=== PATIENT | female | born 1990 | race Caucasian/White ===

== ENCOUNTER 2024-01-30 14:30 | Emergency (ER) | payer OTHER, SELFPAY ==
[2024-01-30 14:41] VITALS: BP 157/83; PULSE 92; RESP 20; TEMP 36.3; O2SAT 100
--- NOTE | 2024-01-30 14:53 | ED.URI ---
HPI - URI/Sore Throat General Chief Complaint: Upper Respiratory Infection Stated Complaint: Sore Throat/Cough Time Seen by Provider: 01/30/24 14:53 Source: patient, RN notes reviewed and old records reviewed Mode of arrival: ambulatory Limitations: no limitations History of Present Illness HPI Narrative: 33-year-old female to [facility] for complaint of sore throat past 5-6 days. Patient states that she was placed on Keflex by her PCP on January 26. Patient states that she has also taken Mucinex, Claritin, Tylenol, and ibuprofen at home with little relief. Patient reports left ear pain for 2 days. Patient denies pertinent medical history, shortness of breath, cough, fever, chest pain, shortness of breath, difficulty swallowing. Patient able to tolerate fluids by mouth. Respirations even and unlabored. Patient in no acute distress. Related Data Allergies Allergy/AdvReac Type Severity Reaction Status Date / Time amoxicillin Allergy Unknown Verified 01/31/24 10:00 Penicillins Allergy Unknown Verified 01/31/24 10:00 Review of Systems Review of Systems: All systems reviewed & are unremarkable except as noted in HPI and below Constitutional: Constitutional: Reports as per HPI, Denies fatigue and Denies fever(s) Eyes: Eyes: Reports no additional eye complaints ENT: Reports as per HPI, Reports otalgia ( left) and Reports sore throat Cardiovascular: Cardiovascular: Reports no additional cardiovascular complaints, Denies chest pain and Denies dyspnea Respiratory: Respiratory: Reports no additional respiratory complaints, Denies cough and Denies dyspnea Musculoskeletal: Musculoskeletal: Reports no additional musculoskeletal complaints Neurologic: Reports system reviewed and no additional complaints, except as documented Psychiatric: Psychiatric: Reports no additional psychiatric complaints PMFSH Comments At the time of my signature, I reviewed and agree with the nursing past medical, surgical, social, and family history. There is no relevant family history pertinent to the patient complaint. Exam Const: General: cooperative, healthy appearing, comfortable, no acute distress, alert and well nourished Nutritional Appearance: well nourished Orientation/consciousness: patient oriented x3 Limitations: no limitations HENMT: Head: normal to inspection Ears: external ears normal Face/Nose/Sinus: Normal external nose present, Normal nares present, normal facial exam, No erythema and No edema Face and sinus: normal facial exam, no erythema and no edema Mouth: Yes Normal oral and palatal mucosa present Throat: posterior oropharynx abnormal erythema Eyes: General: appearance normal, both eyes and all related structures Neck: Neck: normal visual inspection, full ROM and no meningeal signs Lymphatic: no lymphadenopathy noted and no lymphedema noted Chest: Chest palpation & inspection: normal inspection of the chest Resp: Effort & Inspection: normal respiratory effort and able to speak in complete sentences Auscultation: clear to auscultation bilaterally Cardio: Jugular venous distension: no JVD Rate: regular rate Rhythm: regular rhythm Back/Spine/Pelvis: Cervical Spine: cervical ROM normal Skin: General skin exam: normal color, no rashes or lesions noted and turgor normal Neuro: General: patient oriented x3, gait normal, moves all extremities and no meningeal signs Speech: normal speech Gait exam (Neuro): Normal gait present Extrem: General: normal to inspection, full ROM and capillary refill normal Psych: Appearance: grossly normal and well kempt Course Course Emergency Course: Some parts of this dictation were generated by voice recognition software and may contain typographical and/or grammatical inaccuracies. Level of Care: Express Care Visit Vital Signs Vital signs: Vital Signs Temperature 36.3 C L 01/30/24 14:41 Pulse Rate 92 01/30/24 14:41 Respiratory Rate 20 01/30/24 14:41 Blood Pres
[2024-01-30 15:22] LABS: EDSTREPNEGPOS1 Presumptive Negative
== END 2024-01-30 15:26 | disposition home or self-care (01) ==
PROVIDERS: Emergency Provider Nurse Practitioner Family; PCP Nurse Practitioner
DX: J02.9 Acute pharyngitis, unspecified (principal)
CPT/HCPCS: 87081; 87880; 99203; G0463

== ENCOUNTER 2025-05-12 09:45 | Outpatient (CLI) | payer OTHER, SELFPAY ==
[2025-05-12 10:50] LABS: Hematocrit 42.6 % (37.0-47.0); Hemoglobin 13.9 g/dL (12.0-15.0); Mean Corpuscular HGB Conc 32.6 g/dl (32-36); Mean Corpuscular Hemoglobin 28.8 pg (26-34); Mean Corpuscular Volume 88.4 fl (80-100); Platelet Count Result 298 k/mm3 (150-375); Red Blood Count 4.82 M/mm3 (4.2-5.4); White Blood Count 7.6 K/mm3 (4.5-10.0)
[2025-05-12 11:11] LABS: Albumin Level 4.4 g/dL (3.5-5.1); Anion Gap 10 mmol/L (4-12); Blood Urea Nitrogen 11 mg/dL (7-17); Calcium 8.9 mg/dL (8.4-10.2); Carbon Dioxide 24 mmol/L (22-30); Chloride 102 mmol/L (98-107); Estimated Glomerular Filt Rate > 60; Glucose 97 mg/dL (65-110); Potassium 3.8 mmol/L (3.4-5.0); Sodium 136 mmol/L (137-145)
[2025-05-12 11:12] LABS: Iron 86 ug/dL (37-170)
[2025-05-12 11:18] LABS: Prealbumin 19.8 mg/dL (17.6-36.0)
[2025-05-15 19:08] LABS: Vit. B1, Whole Blood 102.4 nmol/L (66.5-200.0)
== END 2025-05-12 09:46 | disposition home or self-care (01) ==
LOC: ANHLAB 09:47
PROVIDERS: PCP Nurse Practitioner; Visit Provider Surgery Plastic and Reconstructive Surgery
DX: R63.4 Abnormal weight loss (principal)
CPT/HCPCS: 36415; 80048; 82040; 83540; 84134; 84425; 85027

== ENCOUNTER 2025-05-27 05:49 | Day surgery (SDC) | payer OTHER, SELFPAY ==
[2025-05-14 11:04] VITALS: BMI 36.2
[2025-05-27] VITALS (9 sets, daily range): BP systolic 120–147; BP diastolic 75–103; PULSE 93–107; RESP 14–24; TEMP 36.4–36.6; O2SAT 97–100; BMI 37.0
--- OUTSIDE RECORDS SUMMARY | 2025-05-27 05:57 | XMS_ITS | Clinical Summary ---
Author Organization [facility] Address [facility] [place] [address] Care Team Providers Care Anti Air Warfare Operations Officer Name Role Phone None, Provider MD Primary Care Provider Unavaila ble Allergies Active Allergy Reactions Criticality Noted Date Comments Penicillins Hives 10/01/2018 Medications vitamin, low iron, 27-0.8 MG tablet Take 1 tablet by mouth daily. Active oxyCODONE-acetam inophen (PERCOCET) 5-325 MG tablet Take 1 tablet by mouth every 4 (four) hours as needed for Pain. 40 tablet 10/15/2018 Active Active Problems Problem Noted Date Diagnosed Date Non-reactive NST (non-stress test) 10/14/2018 Family History Medical History Relation Comments high cholesterol Father Diabetes Mother Hypertension Mother Liver Disease Mother Hypertension Sister Relation Status Comments Brother Alive Father Alive Mother Alive Sister Alive Social History Tobacco Use Types Packs/Day Years Used Date Smoking Tobacco: Never Smokeless Tobacco: Never Alcohol Use Standard Drinks/Week Comments No 0 (1 standard drink = 0.6 oz pur e alcohol) AUDIT-C Answer Date Recorded Frequency of Alcohol Consumption Never 10/06/2018 Average Number of Drinks Not on file 019 Frequency of Binge Drinking Not on file 09/22 Comments No Sex and Gender Information Value Date Recorded Sex Assigned at Not on file Legal Sex Female 7:28 PM CDT Gender Identity Not on file Sexual Orientation Not on file Last Filed Vital Signs Vital Sign Reading Time Taken Comments Blood Pressure 115/75 01/03/2019 9:30 AM CDT Pulse 129 01/03/2019 5:18 AM CDT Temperature 37.7 C (99.8 F) 01/03/2019 8:00 AM CDT Respiratory Rate 19 01/03/2019 5:18 AM CDT Oxygen Saturation 97% 01/03/2019 9:30 AM CDT Inhaled Oxygen Concentration - - Weight 99.8 kg (220 lb) 01/03/2019 5:18 AM CDT Height 175.3 cm (5' 9) 01/03/2019 5:18 AM CDT Body Mass Index 32.49 01/03/2019 5:18 AM CDT Plan of Treatment Health Maintenance Due Date Last Done Comments Cervical Cancer Screening Pa p Smear (Age 30 to 64) Every 3 Years 1992 Annual Physical 09/12/1995 Hepatitis C 2010 DTaP, Tdap and Td Vaccines ( 1 - Tdap) 09/12/2011 Hepatitis B Vaccines (1 of 3 - 19+ 3-dose series) 09/12/2011 HPV Vaccines (1 - 3-dose SCD M series) 09/12/2019 Cervical Cancer Screening Pa p with HPV Testing (Age 30 to 64) Every 5 Years 2022 Cervical Cancer Screening with HPV 2022 COVID-19 Vaccine (2024-2 6 season) 2025 Influenza Adult (#1) 2025 Hepatitis A Vaccines Aged Out No long er eligible based on patient's age to complete this topic Meningococcal B Vaccine Aged Out No l onger eligible based on patient's age to complete this topic Meningococcal Vaccine Aged Out No mouna nel eligible based on patient's age to complete this topic Pneumococcal Vaccine: Pediat rics (0 to 5 Years) and At-Risk Patients (6 to 49 Years) Aged Out No longer eligible b ased on patient's age to complete this topic RSV Immunizations Under 20 Months Aged Out No longer eligible based on patient's age to complete this topic Advance Directives * Full Code (Latest Code Status on File) Date Activated Date Inactivated Comments 10/14/2018 7:50 PM 10/15/2018 12:05 PM Care Teams Anti Air Warfare Operations Officer Relationship Specialty Start Date End Date None, Provider, PCP - General 10/06/18
--- OUTSIDE RECORDS SUMMARY | 2025-05-27 05:57 | XMS_ITS | Clinical Summary ---
Author Organization [facility] Address [address] [place] [address] Care Team Providers Care Medical Administrative Specialist Name Role Phone Benjie Rogers MD Primary Care Provider [phone] Isabel Logan APRN-CNM Unavailable + Source Comments [facility],non-owned Affiliates and Associated Physician Practices is amultiple site organization consisting of ambulatory clinics and hospital sitesin [place], [place], [place] and [place]. This disclosure is being madepursuant to the Care Everywhere program and may not contain all information available regarding this patient. Last updated 18.[facility] Allergies Active Allergy Reactions Criticality Noted Date Comments Penicillins Urticaria Medium 10/04/2019 Penicillins Rash Medium 09/02/2016 Medications * Be aware that medications may not be up to date on this document. Alwaysverify current medications with the patient. 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 Has been on Zoloft, Wellbutrin; on Prozac 25 mg daily before this . Some panic attacks. Anxieties about her children, new places. Plans to resume meds post delivery. Insulin controlled gestation al diabetes mellitus (GDM) during 06/18/2021 10/25/19 22 Overview (07/31/2021): Getting twice weekly BPP/NST Growth US 33w 2117g overall 28%, AC 26%, normal CARMEN, cephalic 37w pending Obesity affecting 06/09/2021 10/24/2021 Overview (07/07/2021): BMI 36.8 pre-. Heavier this than for previous ones; gained in between pregnancies. Fall 05/30/2021 07/07/2021 History of gestational diabe champ mellitus (GDM) 05/14/2021 07/31/2021 Overview (05/14/2021): 1st trim A1c 5.3 Nausea/vomiting in 03/07/2021 07/07/2021 Overview (07/07/2021): Resolved by 28 weeks Heartburn during , antepartum 03/07/2021 10/24/2021 Supervision of high risk pre gnancy, antepartum 02/10/2021 10/24/2021 Previous delivery, antepartum 08/02/2016 10/24/2021 Overview (07/25/2021): Plan repeat CS scheduled for 0730 on Sat08/15/21 with MarianelaSourav Randall First CS for breech, oligohydramnios 2017 Second at 36 weeks, emergent for NRFHT ( tachycardia and lack of variability on NST and symptoms of decreased movement - per records, and variable decels, BPP 2/10 per patient) after steroids & elev glucose (gdm - metformin) & baby in NICU after delivery x 14 days Immunizations Immunization Administration Dates Next Due [employer] primary monoval ent 12+ yr 0.3mL Purple cap 07/04/2020,06/14/2020 FLU VACCINE QUAD IIV4 SPLIT 0.25 ML IM 6 INFLUENZA VACCINE, QUADR. (A FLURIA, FLUZONE QUADRIVALENT; 6MO+) (IIV4) 04/29/2020 INFLUENZA VACCINE, QUADR. (F LUZONE; FLULAVAL; FLUARIX; AFLURIA QUADRIVALENT; 6MO+), 0.5 ML (IIV4) 04/13/2021 MMR 08/16/2021() TDAP (7yrs+) 08/16/2021(),07/18/2021,04/30/20 16 Family History Medical History Relation Name Comments Celiac Disease Brother High Cholesterol Father Cancer - Breast Maternal Grandmother Celiac Disease Mother Diabetes - Type 2 Mother Hypertension Mother Other - Gastrointestinal Mother Shandra sung Biliary Cholangitis Cancer - Lung Paternal Grandfather Celiac Disease Sister Hypertension Sister Other - Gastrointestinal Sister HOWIE H Relation Name Status Comments Brother Alive Father Alive Maternal Grandmother Mother Alive Paternal Grandfather Sister Alive Social History Tobacco Use Types Packs/Day Years Used Date Smoking Tobacco: Never Smokeless Tobacco: Never Tobacco Cessation:Counseling Given: Not Answered Alcohol Use Standard Drinks/Week Comments Not Currently 0 (1 standard drink = 0.6 oz pur e alcohol) once a week a glass of wine AUDIT-C Answer Date Recorded Frequency of Alcohol Consumption Never 06/06/2020 Average Number of Drinks Not on file 020 Frequency of Binge Drinking Not on file 05/24 PHQ-2 Answer Date Recorded PHQ2 TOTAL SCORE 0 08/22/2021 [place] Depression Scale Answer Date Recorded [place] Depression Scale Total 5 08/18/2021 Last EPDS Self Harm Result Not on file 08/18 Comments No Sex and Gender Information Value Date Recorded Sex Assigned at Not on file Legal Sex Female 9:56 AM CDT Gender Identity Not on file Sexual Orientation Not on file Occupation 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 Not on file Not on file Not on file Last Filed Vital Signs Vital Sign Reading Time Taken Comments Blood Pressure 140/90 08/14/2022 9:51 AM DIRECTOR ADVERTISING Pulse 90 07/12/2022 3:46 PM DIRECTOR ADVERTISING Temperature 36.8 C (98.2 F) 07/12/2022 2:30 PM DIRECTOR ADVERTISING Respiratory Rate 16 07/12/2022 3:46 PM DIRECTOR ADVERTISING Oxygen Saturation 97% 07/12/2022 3:46 PM DIRECTOR ADVERTISING Inhaled Oxygen Concentration - - Weight 121.1 kg (267 lb) 08/14/2022 9:51 AM DIRECTOR ADVERTISING Height 175.3 cm (5' 9) 08/14/2022 9:51 AM DIRECTOR ADVERTISING Body Mass Index 39.43 08/14/2022 9:51 AM DIRECTOR ADVERTISING Plan of Treatment Health Maintenance Due Date Last Done Comments HEPATITIS B VACCINE (1 of 3 - 19+ 3-dose series) 09/12/2011 HPV VACCINE (1 - 3-dose SCDM series) 09/12/2019 DEPRESSION SCREENING 06/24/2024 05/16/2022, 05/10/2022, 01/26/2022, Additional history exists COVID-19 VACCINE ( - 2024- season) 2025 07/04/2020, 06/14/2020 INFLUENZA VACCINE (#1) 2025 , 04/13/2021, 04/29/2020, Additional history exists DTAP/TDAP/TD VACCINES (3 - Td or Tdap) 07/18/2031 07/18/2021, 04/30/2016 ZOSTER VACCINE (1 of 2) 2042 HEPATITIS C SCREENING Completed 02/10/2021, 018 HIV SCREENING Completed 07/18/2021, 01/23, 02/22/2018 HIB VACCINE Aged Out No longer eligi ble based on patient's age to complete this topic MENINGOCOCCAL (Group B) VACCINE SHARED DECISION-MAKING Aged Out No longer eligible based on patient's age to complete this topic MENINGOCOCCAL GROUPS A/C/Y/W VACCINE Aged Out No longer eligible based on patient's age to complete this topic PNEUMOCOCCAL VACCINE Aged Out No long er eligible based on patient's age to complete this topic Procedures Procedure Name Priority Date/Time Associated Diagnosis Comments HIV-1 HIV-2 ANTIBODY + HIV P24 AG PANEL Routine 07/18/2021 Supervision of high risk in third trimester HEPATITIS C AB W/RFLX TO HCV RNA QN PCR Routine 02/10/2021 Supervision of other normal , antepartum from Last 3 Months or Most Recently Relevant to Health Maintenance Results * HIV-1 HIV-2 ANTIBODY + HIV P24 AG PANEL (07/18/2021) HIV Screen 4th Generation w Reflex NON-REACT SIL NON-REACT SIL [facility] Comment: HIV-1 antigen and HIV-1/HIV-2 antibodies were not detected. There is no laboratory evidence of HIV infection. PLEASE NOTE: This information has been disclosed to you from records whose confidentiality may be protected by state law. If your state requires such protection, then the state law prohibits you from making any further disclosure of the information without the specific written consent of the person to whom it pertains, or as otherwise permitted by law. A general authorization for the release of medical or other information is NOT sufficient for this purpose. For additional information please refer to http://education.[employer]/faq/FJI266 (This link is being provided for informational/ educational purposes only.) The performance of this assay has not been clinically validated in patients less than 2 years old. Test Performed at: [facility] [address] [place] [address] NICKY ERICKSON DO,MPH Blood BLOOD SPECIMEN / Unknown 07/18/2021 07/18/2021 10:58 AM DIRECTOR ADVERTISING Rosemarie Randall MD LAB - CHEMISTRY ORDERABLES Final Result [facility] [address] [place] [address] * HEPATITIS C AB W/RFLX TO HCV RNA QN PCR (02/10/2021) Hepatitis C Antibody NON-REACTI VE NON-REACT SIL [facility] Signal to Cut-Off 0.01 <1.00 [facility] Comment: HCV antibody was non-reactive. There is no laboratory evidence of HCV infection. In most cases, no further action is required. However, if recent HCV exposure is suspected, a test for HCV RNA (test code 39503) is suggested. For additional information please refer to http://education.[employer]/faq/RWW95y2 (This link is being provided for informational/ educational purposes only.) Test Performed at: [facility] [address] [place] [address] NICKY ERICKSON DO,MPH Blood BLOOD SPECIMEN / Unknown 02/10/2021 02/10/2021 3:07 PM CDT Rosemarie Randall MD LAB - CHEMISTRY ORDERABLES Final Result Performing Organization Address City/State/[facility] Co de Phone Number [facility] [address] [place] [address] from Last 3 Months or Most Recently Relevant to Health Maintenance Insurance [facility] * Guarantor: SIDDHARTHAKAYLEEDALLIN Account Type Relation to Patient Date of Phone Billing Address Personal/Family 1990 [address] HEALTH Advance Directives * Full Code (Latest Code Status on File) Date Activated Date Inactivated Comments 05/16/2022 4:42 PM 05/16/2022 8:25 PM * Full Code Date Activated Date Inactivated Comments 08/15/2021 5:43 AM 08/18/2021 5:51 PM * Full Code Date Activated Date Inactivated Comments 07/21/2021 5:46 PM 07/21/2021 8:08 PM * Full Code Date Activated Date Inactivated Comments 05/30/2021 2:48 PM 05/30/2021 8:11 PM Care Teams Medical Administrative Specialist Relationship Specialty Start Date End Date Benjie Rogers MD [address] [place] [id number] PCP - General Family Medicine 10/12/20 Isabel Logan APRN-CNM [address] [address] Certified Nurse [employer] 10/12/20
--- OUTSIDE RECORDS SUMMARY | 2025-05-27 05:58 | XMS_ITS | Clinical Summary ---
Author Organization [facility] Address [address] [place] [address] Care Team Providers Care Hair Baler Name Role Phone Sandra Stokes NP Primary Care Provider Allergies Active Allergy Reactions Criticality Noted Date Comments Penicillins Hives,Rash,Urticaria Medium 09/02/2016 Medications FLUoxetine (PROzac) 20 mg capsuleIndicati ons:CRESENCIO (generalized anxiety disorder) Take 1 capsule (20 mg total) by mouth daily 90 capsule 3 03/02/2025 6 Active hydrOXYzine (ATARAX) 25 mg tabletIndicatio ns:CRESENCIO (generalized anxiety disorder) Take 1 tablet (25 mg total) by mouth every 6 (six) hours as needed for anxiety 120 tablet 1 03/02/2025 6 Active Active Problems Problem Noted Date Diagnosed Date Yeast infection of the skin 10/29/2023 Assessment & Plan (10/29/2023 7:38 AM CDT): Yeast rash under breast This is a recurring problem for patient due to breast size Cervical pain 10/29/2023 Assessment & Plan (10/29/2023 7:39 AM CDT): Due to macromastia Has seen chiropractor previously Chronic bilateral thoracic back pain 10/29/2023 Assessment & Plan (10/29/2023 7:39 AM CDT): Due to macromastia Has seen chiropractor previously Macromastia 08/26/2023 Assessment & Plan (08/26/2023 1:58 PM [employer]): Referral to plastics placed CRESENCIO (generalized anxiety disorder) 06/26/2023 Assessment & Plan (03/02/2025 7:14 AM CDT): Chronic, stable, not currently well controlled Had not been taking her medications due to working nights and taking care of her dad with stage 4 esophageal cancer Would like to restart her meds Fluoxetine 20 mg daily and Hydroxyzine 25 mg QID PRN Follow up 3 months Orders: FLUoxetine (PROzac) 20 mg capsule; Take 1 capsule (20 mg total) by mouth daily hydrOXYzine (ATARAX) 25 mg tablet; Take 1 tablet (25 mg total) by mouth every 6 (six) hours as needed for anxiety Assessment & Plan (10/29/2023 7:38 AM CDT): Chronic, stable Continue Fluoxetine 20 mg daily and Hydroxyzine 25 mg PRN Assessment & Plan (08/26/2023 1:59 PM [employer]): Stable, currently well controlled Continue Prozac 20 mg daily and Atarax 25 mg PRN Assessment & Plan (06/26/2023 1:52 PM [employer]): Stable, currently well controlled Continue Prozac 20 mg daily and Atarax 25 mg PRN Class 2 obesity due to exces s calories without serious comorbidity with body mass index (BMI) of 35.0 to 35.9 in adult 06/26/2023 Assessment & Plan (03/02/2025 7:14 AM CDT): Assessment & Plan (10/29/2023 7:39 AM CDT): Has lost an additional 16 pounds since last visit Doing well with diet modification and exercise Continue Phentermine 37.5 mg daily Assessment & Plan (08/26/2023 1:11 PM [employer]): Has lost 42 pounds since last visit Has been working 4 days/week Has also been doing portion control Assessment & Plan (06/26/2023 1:53 PM [employer]): Patient lost 40 pounds last year dieting but gained the weight back Phentermine 37.5 mg daily Use in combination with diet and exercise Follow up in 2 months Resolved Problems Problem Noted Date Diagnosed Date Resolved Date Subchorionic hematoma 03/02/20252024 History of insulin controlle d gestational diabetes mellitus (GDM) 06/26/2023 03/02/2025 Assessment & Plan (06/26/2023 1:52 PM [employer]): A1c ordered Carrier of group B Streptococcus 03/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 03/02/2025 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 07/18/2016 03/02/2025 Encounters Date Type Department Care Team Description 05/10/2025 Telephone [facility] [address] [phone] Sandra Stokes NP 03/02/2025 7:00 AM CDT Office Visit [facility] [address] [phone] Sandra Stokes NP Annual physical exam (Primary Dx); CRESENCIO (generalized anxiety disorder); Class 2 obesity due to excess calories without serious comorbidity with body mass index (BMI) of 35.0 to 35.9 in adult from Last 3 Months Immunizations Immunization Administration Dates Next Due Influenza, Quadrivalent, Spl it, Intramuscular 04/29/2020,03/19/2016 Influenza, Quadrivalent, Spl it, Preservative Free, Intramuscular 04/13/2021 Influenza, Unspecified 04/02/2023,03/24/2022 Tdap 07/18/2021,02/28/2017,04/30/2016 Surgical History Surgery Date Site/Laterality Comments SECTION HYSTERECTOMY Medical History Medical History Date Comments Anxiety Depression Carrier of group B Streptococcus 03/28/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 07/18/2016 Subchorionic hematoma 03/02/2025 History of insulin controlled gestational diabet es mellitus (GDM) 06/26/2023 Family History Medical History Relation Name Comments Celiac disease Brother Heart disease Father Hypertension Mother Diabetes Sister Hypertension Sister Relation Name Status Comments Brother Alive Father Alive Mother Alive Sister Alive Social History Tobacco Use Types Packs/Day Years Used Date Smoking Tobacco: Never Smokeless Tobacco: Never Tobacco Cessation:Counseling Given: Not Answered [facility] Utilities Answer Date Recorded In the past 12 months has e Tomf[employer], gas, oil, or water company threatened to shut off services in your home? No 08/26/2023 Humiliation, Afraid, Rape, and Kick questionnair e Answer Date Recorded Within the last year, have y ou been afraid of your partner or ex-partner? No 08/26/2023 Within the last year, have y ou been humiliated or emotionally abused in other ways by your partner or ex-partner? No Within the last year, have y ou been kicked, hit, slapped, or otherwise physically hurt by your partner or ex-partner? No 08/26/2023 Within the last year, have y ou been raped or forced to have any kind of sexual activity by your partner or ex-partner? No 08/26/2023 Social Connection and Isolation Panel Answer Date Recorded In a typical week, how many times do you talk on the phone with family, friends, or neighbors? More than three times a week 08/26/2023 How often do you get togethe r with friends or relatives? More than three times a week 08/26/2023 How often do you attend [facility] or nondenominational services? More than 4 times per year 08/26/2023 Do you belong to any clubs o r organizations such as anglican groups, unions, fraternal or athletic groups, or school groups? No 08/26/2023 How often do you attend meet ings of the clubs or organizations you belong to? Never 08/26/2023 Are you , , di vorced, , never , or living with a partner? 08/26/2023 AUDIT-C Answer Date Recorded Q1: How often do you have a drink containing alc ohol? Monthly or less 08/26/2023 Q2: How many drinks containi ng alcohol do you have on a typical day when you are drinking? 1 or 2 08/26/2023 Q3: How often do you have si x or more drinks on one occasion? Never 08/26/2023 Overall Financial Resource Strain (CARDIA) Answe r Date Recorded How hard is it for you to pa y for the very basics like food, housing, medical care, and heating? Not hard at all 08/26/2023 PHQ-2 Answer Date Recorded PHQ-2 Total Score (If total score is 3 or more points, staff should administer the PHQ-9) 0 03/02/2025 [facility] of Occupat ional Health - Occupational Stress Questionnaire Answer Date Recorded Do you feel stress - tense, restless, nervous, or anxious, or unable to sleep at night because your mind is troubled all the time - these days? To some extent 08/26/2023 Exercise Vital Sign Answer Date Recorde d On average, how many days pe r week do you engage in moderate to strenuous exercise (like a brisk walk)? 7 days 08/26/2023 On average, how many minutes do you engage in exercise at this level? 40 min 08/26/2023 Hunger Vital Sign Answer Date Recorded Within the past 12 months, y ou worried that your food would run out before you got the money to buy more. Never true 08/26/19 24 Within the past 12 months, t he food you bought just didn't last and you didn't have money to get more. Never true 08/26/2023 PRAPARE - Transportation Answer Date Re corded In the past 12 months, has l ack of transportation kept you from medical appointments or from getting medications? No 09/2023 In the past 12 months, has l ack of transportation kept you from meetings, work, or from getting things needed for daily living? No 08/26/2023 Housing Stability Vital Sign Answer Dusty e Recorded In the last 12 months, was t here a time when you were not able to pay the mortgage or rent on time? No 08/26/2023 In the last 12 months, how many places have you lived? 1 08/26/2023 In the last 12 months, was t here a time when you did not have a steady place to sleep or slept in a retirement (including now)? 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 Not on file Not on file Last Filed Vital Signs Vital Sign Reading Time Taken Comments Blood Pressure 110/78 03/02/2025 6:52 AM CDT Pulse 86 03/02/2025 6:52 AM CDT Temperature 37 C (98.6 F) 03/02/2025 6:52 AM CDT Respiratory Rate 16 03/02/2025 6:52 AM CDT Oxygen Saturation 99% 03/02/2025 6:52 AM CDT room air Inhaled Oxygen Concentration - - Weight 107.5 kg (237 lb) 03/02/2025 6:52 AM CDT Height 175.3 cm (5' 9) 03/02/2025 6:52 AM CDT Body Mass Index 35 03/02/2025 6:52 AM CDT Plan of Treatment Health Maintenance Due Date Last Done Comments Influenza Vaccine (#1) 2025 , 03/24/2022, 04/13/2021, Additional history exists Depression Screening 03/02/2026 03/02/2025, 10/29/2023, 08/26/2023, Additional history exists Regular Well Visit/Exam 18-64 03/02/2026 03/02/2025, 06/26/2023 DTaP/Tdap/Td Vaccine (4 - Td or Tdap) 07/18/2031 07/18/2021, 02/28/2017, 04/30/2016 Hepatitis B Screening Completed 10/14/2018 Covid-19 Vaccine Discontinued 07/04/2020, 06/14/2020 Hepatitis C Screening Completed 02/10/2021 Cervical Cancer Screening Discontinued 06/20/2021 HPV Vaccines Discontinued Pneumococcal vaccine <65 Aged Out No longer eligible based on patient's age to complete this topic Varicella Vaccines Discontinued Insurance [facility] [employer] Address: [facility] [id number] [place] [address] Care Teams Hair Baler Relationship Specialty Start Date End Date Sandra Stokes NP PCP - General Family Medicine 06/26/23
[2025-05-27] MEDS: TRANEXAMIC ACID 1,000 MG/10 ML AMPUL 1000 MG IV PUSH (06:50)
[2025-05-27] MEDS: LACTATED RINGERS 1,000 ML 30 ML IV CONT ×2 (06:53→10:55)
--- NOTE | 2025-05-27 07:06 | P.PNAN_ITS ---
Anes - Initial Pre Proc Eval Procedure: Operation Date: 05/27/25 07:30 Proposed Procedures p Bilateral Breast Reduction Mammoplasty - Wilfrido Woodruff MD Date/Time: 05/27/25 07:06 Surgeon: Wilfrido Woodruff MD Pre Op Diagnosis: Macromastia Patient Data Age: 34 Gender: F Height: 1.75 m Weight: 113.8 kg Last Vital Signs Temp 36.4 C L 05/27/25 06:22 Pulse 98 05/27/25 06:22 Resp 18 05/27/25 06:22 BP 138/95 H 05/27/25 06:22 Pulse Ox 100 05/27/25 06:22 O2 Del Method Room Air 05/27/25 06:22 Allergies Allergy/AdvReac Type Severity Reaction Status Date / Time amoxicillin Allergy Intermediate Hives Verified 05/27/25 06:10 Penicillins Allergy Intermediate Hives Verified 05/27/25 06:10 Home Medications ?Medication ?Instructions ?Recorded ?Confirmed ?Type fluoxetine 20 mg capsule 20 mg PO DAILY 05/14/2510/16 History hydroxyzine HCl 25 mg tablet 25 mg PO DAILY PRN itchin g 05/14/25 05/27/25 History Patient hx anesthesia problems: none Family hx anesthesia problems: none Results Review: All pre-operative results and documents have been reviewed as part of the pre- operative evaluation. REPLACED BY [facility] Social History Social History Smoking status: Never smoker Second hand tobacco smoke exposure: Yes Substance use type: does not use Living arrangements: with family Spiritual care concerns: No Anes - Eval Final PreProcedure Day of Procedure 05/27/25 07:06 Patient weight: overweight Heart: regular rate and rhythm Lungs: clear to auscultation Airway: Mallampati scale class II Neurological: alert and oriented Last oral intake: >/= 8 hours ASA classification: II Emergent: no Anesthetic plan: proceed Anesthesia type and monitoring: general and standard monitoring Results Review: All pre-operative results and documents have been reviewed as part of the pre- operative evaluation. Informed Consent: The patient's anesthetic plan and its attendant risks and benefits were discussed with the patient/family/POA. Questions were solicited and answers provided to the satisfaction of the patient/family/POA.
--- NOTE | 2025-05-27 07:26 | P.OP_ITS ---
Procedure Note - Detailed Date of Procedure 05/27/25 Pre-op Diagnosis Macromastia Post-op Diagnosis Same Procedure Performed Bilateral reduction mammaplasty Surgeon Wilfrido Woodruff MD Anesthesia General Findings Inverted T Superior medial pedicle Tissue removed: Right breast: 1,718 grams Left breast: 1,786 grams Lipoaspirate: 350 cc Description of Procedure She is here today for bilateral breast reduction. Previously and again today the risks, benefits, alternatives were discussed in extensive detail. I wanted her to be very realistic about the risks involved as well as expectations. We discussed aftercare and what to monitor for. She understands we can never guarantee final breast size and there will always be asymmetry. I was very upfront and honest about the risks of sensation change and even nipple loss (). Made sure answered all of her questions to her satisfaction today and consent was obtained. She was marked in the preoperative holding area with their verification. The patient was taken to the operating room placed supine on the operating table. Anesthesia was provided by anesthesiology. She was prepped and draped in a standard sterile fashion. A surgical time-out was taken. Stab incisions were made and I tumesced with a tumescent solution. Suction lipectomy of lateral breast / chest wall was completed for contouring based on [employer] liposuction techniques utilizing a 4mm basket cannula. This was based on preoperative planning, intraoperative observation, and a rolling pinch test which was in full agreement. I marked out the nipple-areolar complex at 42 mm. I then de-epithelialized the pedicle. The pedicle was well left well more than 2 cm in thickness. I then removed the inferior portion of the breast as well as the central keel to get shape based on preoperative planning. At this point copiously irrigated with saline solution and verified a strict hemostasis. I reapproximated the pillars using a 2-0 PDS. I tailor tacked the breast into place with león. She was placed in a sitting position. I verified the nipple-areolar complex position based on preoperative markings, intraoperative measurements, and observation which were in full agreement. This nipple-areolar complex was marek ed at 42 mm in size. I then placed supine and de-epithelialized this. Nipple- areolar complex was inset with 3-0 Monocryl. I closed IMF deep with 1 strattafix. I closed the vertical incision with 3-0 Monocryl in the IMF with 3- 0 stratafix. Then everything was closed using a running subcuticular 4-0 Monocryl and tissue glue. A dressing was placed followed by surgical bra. Patient was awoke and taken to PACU without difficulty. All instrument sponge counts were correct at the end of the case. Estimated Blood Loss 60 Drains No Packing No Pathology None sent Complications No immediate complications Condition Stable Disposition PACU
--- NOTE | 2025-05-27 07:26 | WPDHPUPDATE1 ---
History and Physical Update Update Date/Time: 05/27/25 07:26 History and Physical has been reviewed, including an updated exam of the patient. There are NO changes in the patient's condition. Risks, benefits, and alternatives have been discussed and questions answered. Patient agrees to proceed with procedure.
[2025-05-27] MEDS: ceFAZolin SODIUM 2 GM/20 ML SW SYRINGE IV PUSH (08:08)
[2025-05-27] MEDS: LACTATED RINGERS IRRIG 1,000 ML, LIDOCAINE 1% LOCAL INJ 50 ML, EPINEPHrine HCL INJ 1 MG... INFILTRATE (08:55)
--- NOTE | 2025-05-27 10:44 | SUR.OPER ---
Right Breast Tissue: 1718kg Left Breast Tissue: 1786kg
[2025-05-27] MEDS: fentaNYL CITRATE INJ (*CRX) 100 MCG/2 ML VIAL 25 MCG IV PUSH ×4 (11:24→11:56)
[2025-05-27] MEDS: oxyCODONE HCL (*CRX) 5 MG TAB IR PO (12:07)
== END 2025-05-27 12:40 | disposition home or self-care (01) ==
PROVIDERS: Visit Provider Surgery Plastic and Reconstructive Surgery
PROC: 0HBV0ZZ Excision of Bilateral Breast, Open Approach (ICD-10-PCS; CPT 19318; principal; 2025-05-27 07:30)
DX: N62 Hypertrophy of breast (principal)
CPT/HCPCS: 19318; J3290

== ENCOUNTER 2025-05-27 13:45 | Outpatient (NON) | payer OTHER, SELFPAY ==
--- NOTE | 2025-05-27 | S_PTH ---
PATIENT: Mercedez Eddy LOC: [facility] U#:[id number] AGE/SX: 34/F ROOM: RE05/27/[address]: Wilfrido Woodruff MD : 1990 BED: DIS: 05/27/2025 SPEC #: [id number] RECD: 05/27/25 14:04 STATUS: MARIAJOSE RELiliana #: [id number] LACHELLE: 05/27/25 00:[address]: Wilfrido Woodruff DEPT: [facility] Surgical RECD BY: Lima Becerra ENTERED: 05/27/25 14:04 SP TYPE: Surgical OTHR DR: UNKNOWN,DOCTOR Tissues: A - Breast Reduction B - Breast Reduction Procedures: Hematoxylin and Eosin Stain Gross and Microscopic Level 4
== END 2025-05-27 13:46 | disposition home or self-care (01) ==
LOC: ANHLAB 13:47
PROVIDERS: Visit Provider Surgery Plastic and Reconstructive Surgery
DX: N62 Hypertrophy of breast (principal)
CPT/HCPCS: 88305